=== PATIENT | male | born 1990 | race Caucasian/White ===

== ENCOUNTER 2025-07-21 18:03 | Emergency (ER) | payer MEDICAID ==
[~2025-07-21] VITALS: Ht 180.3 cm; Wt 102.0 kg
[2025-07-21 18:30] VITALS: BP 136/98; PULSE 75; RESP 15; O2SAT 98
--- NOTE | 2025-07-21 21:58 | Physician Documentation ---
History of Present Illness ~ Chief Complaint: Ear Pain Stated Complaint: EAR PAIN Time Seen by MD: 21:25 HPI This is a 34-year-old male who presents with a proximally three weeks of right ear pain, patient reports that he was seen by primary care provider prescribed antibiotic ear drops however he felt like the drops were making it into the ear canal. Patient reports no fever, chills, other systemic symptoms. Patient reports no throat pain or other acute symptoms or concerns. Medication Reconciliation Allergies: Coded Allergies: bee pollen (Verified Allergy, Unknown, 07/21/25) Scheduled Ciprofloxacin HCl/Dexameth (Ciproflox-Dexameth Otic Susp), 4 DROP RIGHT EAR BID Past Medical History Past Medical History: No Pertinent History Review of Systems ROS As stated above in the HPI, otherwise all systems are reviewed and negative. Physical Exam Vital Signs: Temperature: 98.6, Source: Temporal, Heart Rate: 75, Respiratory Rate: 15, BP: 136/98, Pulse Oximetry: 98, Weight: 102.000 Physical Exam VITALS: Reviewed and as above. GENERAL: Alert, nontoxic appearing, no apparent distress. HEENT: Right auditory canal erythematous, significant cerumen requiring removal for exam of TM, right TM clear no bulging, left auditory canal clear without erythema, left TM clear nonbulging, no postauricular tenderness or erythema bilaterally RESPIRATORY: No increased work of breathing, no respiratory distress, speaking in full clear sentences Progress Results/Orders Results/Orders Completed Orders - TRENA HADLEY [employer] Cipro 0.3%/Dexameth 0.1% Otic (Ciproflox (07/21/25 22:05) Medications Received in ER Medications (Trade) Dose Ordered Sig/Srinivas Route PRN Reason Start Time Stop Time Status Last Admin Dose Admin (CIPROFLOX-DEXAMETH OTIC SUSP 10ml bottle) 4 drp ONCE ONCE EACH EAR 07/21/25 22:05 07/21/25 22:14 DC 07/21/25 22:29 4 DRP Vital Signs 07/21/25 07/21/25 18:30 22:29 Temp 98.6 98.6 Pulse 75 Resp 15 B/P (MAP) 136/98 Pulse Ox 98 Medical Decision Making Additional information obtaine: N/A Findings 34-year-old male presented with right ear pain for the last three weeks, patient has been seen by his primary care provider and prescribed otic drops however he felt the drops were not making their way in, on physical exam there was significant cerumen to the ear that required removal for examination of the TM, auditory canal was erythematous and consistent with otitis externa, I suspect due to the cerumen in the ear patient was not able to get otic drops to penetrate to infected area therefore cerumen removed and patient is started on 2nd course of otic drops. Otherwise physical exam benign and reassuring with no postauricular tenderness or erythema. Patient is otherwise well-appearing and appropriate for outpatient follow up, patient to follow up with primary care provider for recheck in the next few days. Provided home care instructions return to care precautions, and follow up instructions which he verbalized understanding of. Ear Diff. Dx: Considerations: Include: Abrasion, Cerumen impaction, Foreign body, Otitis externa, Barotrauma, Otitis media, Perforation, Referred pain- dental, Referred pain-pharyngitis, Referred pain-sinusitis, Referred pain-TMJ syn., Tympanic Membrane Injury Eye Diff. Dx: Considerations: Unlikely: Chalazoin, Conjuctivits-allergic, Conjuctivitis-bacterial, Conjuctivits-chlamydial, Conjuctivitis-viral, Corneal abrasion, Corneal laceration, Corneal ulceration, Foreign body-conjuctiva, Foreign body-corneal, Foreign body-intraocular, Foreign body-lid, Glaucoma, Globe rupture, Hordeolum, Iritis, Orbital cellulitis, Periobital cellulitis, Retinal artery occulsion, Retinal vein occlusion, Rust ring, Subconjunctival hem, Ultraviolet keratitis, Uveitis, Vitreous hemorrhage, Other Nose Diff. Dx: Considerations: Unlikely: Abrasion, Anterior nasal bleed, Avulsion, Contusion, Coagulopathy, Fracture-nasal bone, Fracture-septum, Hypertension, Laceration, Other, Posterior nasal bleed, Retained foreign body, Septal hematoma Tooth Diff. Dx: Considerations: Unlikely: Alveolar fracture, Aveolar osteitis, ANUG, Facial cellulitis, Periapical abscess, Periodontal abscess, Post- extraction bleeding, Pulpitis, Trigeminal neuralgia, Tooth-avulsion, Tooth- eruption, Tooth-fracture, Tooth-subluxation, Other Throat Diff Dx: Considerations: Unlikely: AIDS, Epiglottitis, Esophageal candidiasis, Hand foot mouth disease, Herpangina, Herpetic stomatitis, Herpes simplex, Infection mononucleosis, Immunodeficiency, Carlos's angina, Peritonsillar abscess, Peritonsillar cellulitis, Pharyngitis-diphtheria, Pharyngitis-strepococcal, Pharyngitis-viral, Thrush, URI, Other Departure Time of Disposition: 21:58 Disposition: 01 HOME / SELF CARE / HOMELESS Impression: Primary Impression: Otitis externa of right ear Qualified Codes: H60.91 - Unspecified otitis externa, right ear Condition: Improved Discharge Instructions: Otitis Externa, [id number] Additional Instructions: Please use the prescribed otic drops, follow up as soon as possible with your primary care provider for re-evaluation. Please follow up with your primary care provider in the next few days. Please return to the emergency department for any new or worsening concerning symptoms. Referrals: NO PRIMARY CARE PROVIDER (PCP) Prescriptions Ciprofloxacin HCl/Dexameth (Ciproflox-Dexameth Otic Susp) 0.3 %-0.1 % Drops.susp 4 DROP RIGHT EAR BID for 10 Days, #1 BOTTLE Prov: TRENA HADLEY 07/21/25 Education Educated: Patient Educated regarding: diagnosis, treatment, prognosis, need for follow up Signature Scribe Signature: No scribe Attestation: The note accurately reflects work and decisions made by me.PURNIMA Adame 07/21/25 22:01 TRENA HADLEY Jul 21, 2025 21:58
[2025-07-21] MEDS ORDERED: CIPR7.5D7 RIGHT EAR (22:01)
[2025-07-21 22:29] VITALS: TEMP 98.6
[2025-07-21] MEDS: CIPROFLOXACIN HCL/DEXAMETH 7.5 ML DROPS.SUSP EACH EAR ONE (22:29)
== END 2025-07-21 22:30 | disposition home or self-care (01) ==
LOC: ER 18:04
DX: H60.91 Unspecified otitis externa, right ear (principal); Z91.030 Bee allergy status
CPT/HCPCS: 99283